=== PATIENT | male | born 1985 | race Caucasian/White ===

== ENCOUNTER 2018-02-08 08:46 | Emergency (ER) | payer BC ==
--- NOTE | 2018-02-08 09:02 | C.PDOC ---
History Of Present Illness 32yo male, with history of hypertension, high cholesterol, comes to ER reporting left sided chest pain since 2 AM today. Patient states the pain radiates to his left shoulder area, and he also has left arm pain and weakness. He had had similar episode previously but states this episodes was different, prompting the ER visit. He otherwise denies any falls, trauma, fever, chills, cough, abdominal pain, or other complaints. Of note, patient states he is non-compliant with his medications. He did not take any medications for pain. He has no additional complaints. PMD: Dr. Banks (pain management) Time Seen by Provider: 02/08/18 09:01 Chief Complaint (Nursing): Chest Pain History Per: Patient History/Exam Limitations: no limitations Onset/Duration Of Symptoms: Hrs Current Symptoms Are (Timing): Still Present Quality: "Pain" Associated Symptoms: denies: Nausea, Dyspnea, Diaphoresis, Syncope Additional History Per: Patient Past Medical History Reviewed: Historical Data, Nursing Documentation, Vital Signs Vital Signs: Last Vital Signs Temp 98.4 F 02/08/18 08:55 Pulse 92 H 02/08/18 08:55 Resp 18 02/08/18 08:55 BP 141/90 02/08/18 08:55 Pulse Ox 98 02/08/18 08:55 - Medical History PMH: Back Problems, HTN, Hypercholesterolemia, Migraine Other Surgeries: right wrist Family History: States: Hypertension (grandfather) - Social History Hx Tobacco Use: No Hx Alcohol Use: No Hx Substance Use: No - Immunization History Hx Tetanus Toxoid Vaccination: No Hx Influenza Vaccination: No Hx Pneumococcal Vaccination: No Review Of Systems Except As Marked, All Systems Reviewed And Found Negative. Constitutional: Negative for: Fever, Chills, Sweats Cardiovascular: Positive for: Chest Pain Respiratory: Negative for: Cough, Shortness of Breath Gastrointestinal: Negative for: Abdominal Pain Physical Exam - Physical Exam Appears: Non-toxic, No Acute Distress Skin: Normal Color, Warm, Dry Head: Normacephalic Eye(s): bilateral: Normal Inspection Neck: Normal ROM Chest: Symmetrical, Tenderness (left chest wall tenderness to palpation) Cardiovascular: Rhythm Regular Respiratory: Normal Breath Sounds Gastrointestinal/Abdominal: Normal Exam, Soft, No Tenderness Back: Normal Inspection, No CVA Tenderness Extremity: Normal ROM (FROM left shoulder, elbow and wrist.), No Tenderness, No Deformity, Other (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) Pulses: Left Radial: Normal, Right Radial: Normal Neurological/Psych: Oriented x3, Normal Motor, Normal Sensation ED Course And Treatment - Laboratory Results Result Diagrams: 02/08/18 09:34 02/08/18 09:34 ECG: Interpreted By Me, Viewed By Me ECG Rhythm: Sinus Rhythm ECG Interpretation: Normal Interpretation Of ECG: NO STEMI Rate From EC O2 Sat by Pulse Oximetry: 98 (RA) Pulse Ox Interpretation: Normal Medical Decision Making Medical Decision Makinyo male with history of HTN, high cholesterol, 2nd degree family (grandfather) history of HTN, [place], comes to ER reporting left sided chest pain, left arm and shoulder pain. No fall or trauma. N/V intact in all extremities. Normal neuro exam. Chest pain reproducible to palpation. Full ROM to LUE, no snuffbox tenderness or fall. Low pretest well, perc out. Full strength in b/l UE. Likely costochondritis HEART Score: 1+, pending trop story: 0 Age: 0 RF: 1 EK Troponin: Pending Plan: -- EKG -- Labs -- CXR 1000 CXR unremarkable 1050 troponin negative: Heart score 1 normal neuro exam pain improved clear for d/c home with return indications and f/u. pt agreeable to plan. Disposition - Disposition Disposition: HOME/ ROUTINE Disposition Time: 10:51 Condition: GOOD Forms: [facility] (Kazakh) - Clinical Impression Clinical Impression: Chest wall pain, Costochondritis - Scribe Statement The provider has reviewed the documentation as recorded by the Shahnaz Scott Provider Attestation: All medical record entries made by the Shahnaz were at my direction and personally dictated by me. I have reviewed the chart and agree that the record accurately reflects my personal performance of the history, physical exam, medical decision making, and the department course for this patient. I have also personally directed, reviewed, and agree with the discharge instructions and disposition.
[2018-02-08 09:39] LABS: BASO # 0.1 K/uL (0.0-0.2); BASO % 0.8 % (0.0-2.0); EOS # 0.1 K/uL (0.0-0.7); HEMOGLOBIN 16.8 g/dL (12.0-18.0); LYMPH # 1.6 K/uL (1.0-4.3); LYMPH % 20.4 % (20.0-40.0); MEAN CORPUSCULAR HEMOGLOBIN 30.5 pg (27.0-31.0); MEAN CORPUSCULAR HGB CONC 35.3 g/dL (33.0-37.0); MONO # 0.5 K/uL (0.0-0.8); NEUT # 5.5 K/uL (1.8-7.0); NEUT % 71.8 % (50.0-75.0); NRBC % 0.1 % (0.0-2.0); RBC 5.51 Mil/uL (4.40-5.90); RED CELL DISTRIBUTION WIDTH 12.9 % (11.5-14.5); WHITE BLOOD COUNT 7.6 K/uL (4.8-10.8)
[2018-02-08 09:41] LABS: MEAN CELL VOLUME 86.4 fL (80.0-94.0)
[2018-02-08 10:02] LABS: ALB/GLOB RATIO 1.7 (1.0-2.1); ALBUMIN 4.7 g/dL (3.5-5.0); ALT/SGPT 51 U/L (21-72); AST/SGOT 32 U/L (17-59); BLOOD UREA NITROGEN 18 mg/dL (9-20); CALCIUM 9.3 mg/dl (8.6-10.4); GFR NON-AFRICAN AMERICAN 59
--- NOTE | 2018-02-08 10:18 | RAD ---
Date of service: 02/08/2018 HISTORY: cp COMPARISON: No prior. TECHNIQUE: Chest PA and lateral FINDINGS: LUNGS: No active pulmonary disease. PLEURA: No significant pleural effusion identified. No pneumothorax apparent. CARDIOVASCULAR: No aortic atherosclerotic calcification present. Normal cardiac size. No pulmonary vascular congestion. OSSEOUS STRUCTURES: No significant abnormalities. VISUALIZED UPPER ABDOMEN: Normal. OTHER FINDINGS: None. IMPRESSION: No active disease.
[2018-02-08 11:15] VITALS: BP 121/81; PULSE 75; RESP 16; TEMP 98.5; O2SAT 97
--- NOTE | 2018-02-11 13:42 | CARD ---
APPROVED REPORT Date of service: 02/08/2018 EKG Measurement Heart [id number] <Conclusion> Normal sinus rhythm Normal ECG
== END 2018-02-08 11:22 | disposition home or self-care (01) ==
LOC: C.ER 08:46
DX: R07.89 Other chest pain (principal); M94.0 Chondrocostal junction syndrome [Tietze]; I10 Essential (primary) hypertension; E78.00 Pure hypercholesterolemia, unspecified